=== PATIENT | male | born 2000 | race Caucasian/White ===

== ENCOUNTER 2019-04-09 12:43 | Emergency (ER) | payer SELFPAY ==
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
== END 2019-04-09 15:51 | disposition home or self-care (01) ==
LOC: ER 12:43
DX: R68.84 Jaw pain (principal); Z88.0 Allergy status to penicillin
CPT/HCPCS: 70486; 76377; 99283